=== PATIENT | male | born 1940 | race Asian ===

== ENCOUNTER → 2017-04-12 | Outpatient (CLI) | payer OTHER ==
[~2017-04-12] MED LIST: B&C/1TAB3 PO; BENZ-26 PO; FLUT100B IH; FLUT16H NASAL; INSLAN SQ; INSU100C14 INJ; MIDO5 PO; UMEC62.5 IH
== END | disposition home or self-care (01) ==
LOC: RADPV 14:21
PROVIDERS: ATTEND Internal Medicine Critical Care Medicine
DX: J98.11 Atelectasis (principal); R91.1 Solitary pulmonary nodule; J98.4 Other disorders of lung; I70.0 Atherosclerosis of aorta; M48.54XA Collapsed vertebra, not elsewhere classified, thoracic region, initial encounter for fracture
CPT/HCPCS: 71020

== ENCOUNTER → 2017-09-11 | Outpatient (CLI) | payer OTHER ==
[~2017-09-11] MED LIST changes: -BENZ-26 PO; +BENZ-51 PO; -MIDO5 PO; +MIDO5TAB23 PO
== END | disposition home or self-care (01) ==
LOC: RADMN 11:01
PROVIDERS: ATTEND Internal Medicine Critical Care Medicine
DX: J43.2 Centrilobular emphysema (principal); R91.8 Other nonspecific abnormal finding of lung field; I25.10 Atherosclerotic heart disease of native coronary artery without angina pectoris; I73.9 Peripheral vascular disease, unspecified; K80.20 Calculus of gallbladder without cholecystitis without obstruction; K44.9 Diaphragmatic hernia without obstruction or gangrene; N20.0 Calculus of kidney
CPT/HCPCS: 71250

== ENCOUNTER 2017-12-11 07:23 | Day surgery (SDC) | payer OTHER ==
[~2017-12-11] VITALS: Ht 157.5 cm; Wt 44.1 kg
[~2017-12-11 07:23] MED LIST changes: -BENZ-51 PO; -FLUT100B IH; -FLUT16H NASAL; -INSLAN SQ; -MIDO5TAB23 PO; +SEVEC800 PO; +SODIUM CHLORIDE 0.9% 1,000 ML IV ONE; +TRAM50TA4 PO; -UMEC62.5 IH; +VITAD1000 PO
[2017-12-11 08:24] LABS: BASOPHILS % (AUTO) 0.9 % (0.0-2.0); EOSINOPHILS % (AUTO) 7.4 % (1.0-6.0); HEMATOCRIT 36.1 % (41-53); HEMOGLOBIN 12.4 g/dL (13.5-17.5); LYMPHOCYTES # (AUTO) 1.4 K/uL (1.0-4.8); MEAN CORPUSCULAR HEMOGLOBIN 36.5 pg (26.0-34.0); MEAN CORPUSCULAR HGB CONC 34.5 G/dL (31.0-37.0); MEAN CORPUSCULAR VOLUME 106 fL (80-100); MONOCYTES # (AUTO) 0.4 K/uL (0.1-1.0); MONOCYTES % (AUTO) 7.1 % (2.0-9.0); NEUTROPHILS % (AUTO) 62.6 % (40.0-70.0); PLATELET COUNT (AUTO) 283 K/uL (150-450); RED BLOOD CELL COUNT(AUTO) 3.41 MIL/uL (4.50-5.90); RED CELL DISTRIBUTION WIDTH 14.2 % (11.5-14.5)
[2017-12-11 08:48] LABS: CALCIUM, TOTAL 9.5 mg/dL (8.8-10.5); CREATININE 6.68 mg/dL (0.60-1.30); POTASSIUM 5.3 mmol/L (3.5-5.1)
[2017-12-11 08:54] LABS: PROTHROMBIN TIME 10.3 SEC (9.4-11.6)
[2017-12-11] MEDS ORDERED: GELATIN SPONGE,ABSORBABLE 12-7 MM TP ONE (09:33)
[2017-12-11] MEDS ORDERED: FentaNYL CITRATE-PF 100 MCG/2 ML VIAL ONE (09:33)
[2017-12-11] MEDS ORDERED: MIDAZOLAM HCL 2 MG/2 ML VIAL ONE (09:33)
[2017-12-11] MEDS ORDERED: LIDOCAINE HCL/PF 1% 30 ML VIAL ONE (09:33)
[2017-12-11] MEDS ORDERED: FentaNYL CITRATE-PF 100 MCG/2 ML VIAL IVP ONE (09:50)
[2017-12-11] MEDS ORDERED: MIDAZOLAM HCL 2 MG/2 ML VIAL IVP ONE (09:50)
== END 2017-12-11 13:45 | disposition home or self-care (01) ==
LOC: SURGERY 07:23 → EDSTATUS 09:00 → SURGERY 13:45
PROVIDERS: ATTEND Internal Medicine Critical Care Medicine
DX: J98.4 Other disorders of lung (principal); E11.22 Type 2 diabetes mellitus with diabetic chronic kidney disease; I12.0 Hypertensive chronic kidney disease with stage 5 chronic kidney disease or end stage renal disease; N18.6 End stage renal disease; F10.21 Alcohol dependence, in remission; Z87.891 Personal history of nicotine dependence; Z98.890 Other specified postprocedural states; Z79.4 Long term (current) use of insulin; Z79.899 Other long term (current) drug therapy
CPT/HCPCS: 32405; 36415; 71045; 77012; 80048; 85025; 85610; 85730; 87015; 87070; 87205; 93005; J2250; J3010; J7030; J3490

== ENCOUNTER 2018-03-21 06:50 | Day surgery (SDC) | payer OTHER ==
[~2018-03-21] VITALS: Ht 160 cm; Wt 43.2 kg
[~2018-03-21 06:50] MED LIST changes: -SODIUM CHLORIDE 0.9% 1,000 ML IV ONE; -TRAM50TA4 PO
[2018-03-21] MEDS ORDERED: SODIUM CHLORIDE 0.9% 1,000 ML IV ONE (06:51)
[2018-03-21 07:34] LABS: BASOPHILS % (AUTO) 0.8 % (0.0-2.0); HEMATOCRIT 34.2 % (41-53); HEMOGLOBIN 12.1 g/dL (13.5-17.5); LYMPHOCYTES # (AUTO) 1.7 K/uL (1.0-4.8); LYMPHOCYTES % (AUTO) 23.5 % (22.0-44.0); MEAN CORPUSCULAR HEMOGLOBIN 37.6 pg (26.0-34.0); MEAN CORPUSCULAR HGB CONC 35.4 G/dL (31.0-37.0); MEAN CORPUSCULAR VOLUME 106 fL (80-100); MONOCYTES # (AUTO) 0.5 K/uL (0.1-1.0); MONOCYTES % (AUTO) 6.7 % (2.0-9.0); NEUTROPHILS # (AUTO) 4.5 K/uL (1.8-7.7); PLATELET COUNT (AUTO) 372 K/uL (150-450); RED BLOOD CELL COUNT(AUTO) 3.22 MIL/uL (4.50-5.90); RED CELL DISTRIBUTION WIDTH 14.7 % (11.5-14.5)
[2018-03-21] MEDS: SODIUM CHLORIDE 0.9% 1,000 ML IV ONE (07:34)
[2018-03-21 07:43] LABS: PROTHROMBIN TIME 10.2 SEC (9.4-11.6)
[2018-03-21] MEDS ORDERED: TAMS0.4C32 PO (07:59)
[2018-03-21] MEDS ORDERED: MIRALAX PO (07:59)
[2018-03-21] MEDS ORDERED: ACET-66 PO (07:59)
[2018-03-21] MEDS ORDERED: MIDO5TAB23 PO (07:59)
[2018-03-21 08:10] LABS: CALCIUM, TOTAL 9.4 mg/dL (8.8-10.5); CREATININE 6.08 mg/dL (0.60-1.30); POTASSIUM 5.2 mmol/L (3.5-5.1)
[2018-03-21] MEDS ORDERED: MIDAZOLAM HCL 2 MG/2 ML VIAL ONE (08:57)
[2018-03-21] MEDS ORDERED: NALOXONE HCL 0.4 MG/ML VIAL ONE (08:58)
[2018-03-21] MEDS ORDERED: FentaNYL CITRATE-PF 100 MCG/2 ML VIAL ONE (08:58)
[2018-03-21] MEDS ORDERED: FLUMAZENIL 0.1 MG/ML 5 ML VIAL IVP ONE (08:58)
[2018-03-21] MEDS ORDERED: LIDOCAINE HCL/PF 1% 30 ML VIAL ONE (08:59)
[2018-03-21] MEDS: FentaNYL CITRATE-PF 100 MCG/2 ML VIAL IVP ONE (10:57)
[2018-03-21] MEDS: MIDAZOLAM HCL 2 MG/2 ML VIAL IVP ONE (10:57)
== END 2018-03-21 13:40 | disposition home or self-care (01) ==
LOC: SURGERY 06:50 → EDSTATUS 09:00 → SURGERY 13:40
PROVIDERS: ATTEND Internal Medicine Critical Care Medicine
DX: C34.31 Malignant neoplasm of lower lobe, right bronchus or lung (principal); J43.9 Emphysema, unspecified; E11.22 Type 2 diabetes mellitus with diabetic chronic kidney disease; I12.0 Hypertensive chronic kidney disease with stage 5 chronic kidney disease or end stage renal disease; N18.6 End stage renal disease; Z99.2 Dependence on renal dialysis; Z79.891 Long term (current) use of opiate analgesic; Z79.4 Long term (current) use of insulin; Z87.891 Personal history of nicotine dependence; Z98.890 Other specified postprocedural states; Z79.899 Other long term (current) drug therapy
CPT/HCPCS: 32405; 36415; 77012; 80048; 85025; 85610; 85730; 87070; 87205; 88305; 88342; J2250; J3010; J3490; J7030; 88341; J2310

== ENCOUNTER 2018-10-25 08:52 | Inpatient (IN) | payer MEDICARE, OTHER ==
[~2018-10-25] VITALS: Ht 160 cm; Wt 41.5 kg
[~2018-10-25 08:52] MED LIST changes: +ACET-66 PO; -INSU100C14 INJ; +INSU100C14 SQ; +MIDO5TAB23 PO; +MIRALAX PO; +TAMS0.4C32 PO
[2018-10-25] MEDS ORDERED: 0.9% SODIUM CHLORIDE 10 ML SYRINGE IVP PRN (09:15)
[2018-10-25] MEDS ORDERED: FINA5TAB41 PO (09:29)
[2018-10-25] MEDS ORDERED: BENZ-51 PO (09:29)
[2018-10-25] MEDS ORDERED: INSLAN SQ (09:29)
[2018-10-25] MEDS ORDERED: TAMS0.4C32 PO (09:29)
[2018-10-25] MEDS ORDERED: SEVEC800 PO (09:29)
[2018-10-25] MEDS ORDERED: MIDO5TAB23 PO (09:29)
[2018-10-25 09:58] LABS: GLUCOSE,POINT OF CARE 81 MG/DL (70-110)
[2018-10-25] MEDS ORDERED: IPRATROPIUM BROMIDE 0.5 MG/2.5 ML NEB SOLUTION NEB ONE ×2 (10:14→10:30)
[2018-10-25 10:20] LABS: BASOPHILS % (AUTO) 0.4 % (0.0-2.0); EOSINOPHILS % (AUTO) 0.4 % (1.0-6.0); HEMATOCRIT 42.3 % (41-53); HEMOGLOBIN 14.3 g/dL (13.5-17.5); LYMPHOCYTES # (AUTO) 0.4 K/uL (1.0-4.8); LYMPHOCYTES % (AUTO) 5.2 % (22.0-44.0); MEAN CORPUSCULAR HEMOGLOBIN 37.3 pg (26.0-34.0); MEAN CORPUSCULAR HGB CONC 33.9 G/dL (31.0-37.0); MEAN CORPUSCULAR VOLUME 110 fL (80-100); MONOCYTES # (AUTO) 0.6 K/uL (0.1-1.0); MONOCYTES % (AUTO) 7.8 % (2.0-9.0); NEUTROPHILS # (AUTO) 6.7 K/uL (1.8-7.7); PLATELET COUNT (AUTO) 220 K/uL (150-450); RED BLOOD CELL COUNT(AUTO) 3.84 MIL/uL (4.50-5.90); RED CELL DISTRIBUTION WIDTH 17.3 % (11.5-14.5)
[2018-10-25 10:21] LABS: NEUTROPHILS % (AUTO) 86.2 % (40.0-70.0)
[2018-10-25 10:29] LABS: CREATININE 5.9 mg/dL (0.60-1.30); POTASSIUM 4.9 mmol/L (3.5-5.1)
[2018-10-25] MEDS ORDERED: ALBUTEROL SULFATE 5 MG/ML 20 ML NEB SOLN [BULK] NEB ONE (10:30)
[2018-10-25] MEDS ORDERED: SODIUM CHLORIDE 0.9% 1,250 ML IV ONE (10:33)
[2018-10-25 10:35] LABS: BILIRUBIN,TOTAL 1.7 mg/dL (0.1-1.0); TOTAL PROTEIN, SERUM 6.8 g/dL (6.4-8.2)
[2018-10-25 10:38] LABS: LACTIC ACID 1.8 mmol/L (0.4-2.0)
[2018-10-25] MEDS ORDERED: AZITHROMYCIN 500 MG/NS 250 ML IV ONE (10:45)
[2018-10-25] MEDS ORDERED: CefTRIAXone 1 GM/DEXTROSE 50 ML IV ONE (10:45)
[2018-10-25] MEDS ORDERED: BISACODYL 10 MG RECTAL RECTAL SUPPOSITORY PR PRN (11:00)
[2018-10-25] MEDS ORDERED: ACETAMINOPHEN 325 MG TABLET PO PRN (11:00)
[2018-10-25] MEDS ORDERED: DEXTROSE 50%-WATER 25 GM/50 ML SYRINGE IVP PRN (11:00)
[2018-10-25] MEDS ORDERED: ALBUTEROL SULFATE 2.5 MG/0.5 ML NEB SOLUTION NEB PRN (11:00)
[2018-10-25 11:25] LABS: INFLUENZA TYPE A NEGATIVE FOR TYPE A (NEGATIVE); INFLUENZA TYPE B POSITIVE FOR TYPE B (NEGATIVE)
[2018-10-25 11:57] LABS: PROTHROMBIN TIME 41.2 SEC (9.4-11.6)
[2018-10-25 12:03] LABS: INR 4.1 (0.9-1.1)
[2018-10-25] MEDS: ASPIRIN 81 MG CHEWABLE TABLET PO SCH (12:07)
[2018-10-25] MEDS ORDERED: BENZ150C3 PO (12:12)
[2018-10-25] MEDS ORDERED: OSELTAMIVIR PHOSPHATE 75 MG CAPSULE PO ONE (12:15)
[2018-10-25] MEDS: HEPARIN SODIUM,PORCINE 5,000 UNITS/ML VIAL SQ SCH (21:17)
[2018-10-25] MEDS: DOCUSATE SODIUM 100 MG CAPSULE PO SCH (21:17)
[2018-10-26 04:00] VITALS: BP 154/44
[2018-10-26 08:00] VITALS: BP 148/83
[2018-10-26] MEDS: HEPARIN SODIUM,PORCINE 5,000 UNITS/ML VIAL SQ SCH ×2 (08:22→20:30)
[2018-10-26] MEDS: ASPIRIN 81 MG CHEWABLE TABLET PO SCH (08:22)
[2018-10-26] MEDS: DOCUSATE SODIUM 100 MG CAPSULE PO SCH ×2 (08:22→20:30)
[2018-10-26] MEDS: FAMOTIDINE 20 MG TABLET PO SCH (08:22)
[2018-10-26 08:34] LABS: GLUCOSE,POINT OF CARE 108 MG/DL (70-110)
[2018-10-26] MEDS: OSELTAMIVIR PHOSPHATE 30 MG CAPSULE PO SCH (11:30)
[2018-10-26] MEDS: INSULIN LISPRO 100 UNITS/ML SQ PRN (11:53)
[2018-10-26 12:00] VITALS: BP 155/52
[2018-10-26] MEDS ORDERED: SODIUM CHLORIDE 0.9% 250 ML IV ONE (13:10)
[2018-10-26] MEDS: CefTRIAXone 1 GM/DEXTROSE 50 ML IV SCH (13:13)
[2018-10-26] MEDS: AZITHROMYCIN 500 MG/NS 250 ML IV SCH (13:46)
[2018-10-26 16:00] VITALS: BP 148/65
[2018-10-26 19:13] LABS: GLUCOSE,POINT OF CARE 116 MG/DL (70-110)
[2018-10-26 20:00] VITALS: BP 115/65
[2018-10-26] MEDS: GuaiFENesin/D-METHORPHAN/PHENYLEPH 5 ML LIQUID ORAL.SYG PO PRN (22:39)
[2018-10-26 22:53] LABS: GLUCOSE,POINT OF CARE 140 MG/DL (70-110)
[2018-10-27] VITALS: BP 115/53
[2018-10-27] MEDS: GuaiFENesin/D-METHORPHAN/PHENYLEPH 5 ML LIQUID ORAL.SYG PO PRN ×2 (03:52→11:54)
[2018-10-27 04:00] VITALS: BP 129/53
[2018-10-27 05:29] LABS: GLUCOSE,POINT OF CARE 146 MG/DL (70-110)
[2018-10-27 06:49] LABS: GLUCOSE,POINT OF CARE 112 MG/DL (70-110)
[2018-10-27 08:00] VITALS: BP 127/61
[2018-10-27] MEDS: DOCUSATE SODIUM 100 MG CAPSULE PO SCH ×2 (08:51→21:00)
[2018-10-27] MEDS: FAMOTIDINE 20 MG TABLET PO SCH (08:51)
[2018-10-27] MEDS: ASPIRIN 81 MG CHEWABLE TABLET PO SCH (08:51)
[2018-10-27] MEDS: HEPARIN SODIUM,PORCINE 5,000 UNITS/ML VIAL SQ SCH ×2 (08:51→21:22)
[2018-10-27] MEDS: OSELTAMIVIR PHOSPHATE 30 MG CAPSULE PO SCH (08:52)
[2018-10-27 09:07] LABS: BASOPHILS % (AUTO) 0.2 % (0.0-2.0); EOSINOPHILS % (AUTO) 0.5 % (1.0-6.0); HEMATOCRIT 43.1 % (41-53); HEMOGLOBIN 14.4 g/dL (13.5-17.5); LYMPHOCYTES # (AUTO) 0.3 K/uL (1.0-4.8); LYMPHOCYTES % (AUTO) 3.7 % (22.0-44.0); MEAN CORPUSCULAR HEMOGLOBIN 37.4 pg (26.0-34.0); MEAN CORPUSCULAR HGB CONC 33.5 G/dL (31.0-37.0); MEAN CORPUSCULAR VOLUME 112 fL (80-100); MONOCYTES # (AUTO) 0.8 K/uL (0.1-1.0); MONOCYTES % (AUTO) 9.2 % (2.0-9.0); NEUTROPHILS # (AUTO) 7.6 K/uL (1.8-7.7); PLATELET COUNT (AUTO) 261 K/uL (150-450); RED BLOOD CELL COUNT(AUTO) 3.86 MIL/uL (4.50-5.90); RED CELL DISTRIBUTION WIDTH 17.2 % (11.5-14.5)
[2018-10-27 09:11] LABS: NEUTROPHILS % (AUTO) 86.4 % (40.0-70.0)
[2018-10-27 09:17] LABS: CALCIUM, TOTAL 9.4 mg/dL (8.8-10.5); CREATININE 9.15 mg/dL (0.60-1.30); MAGNESIUM 2.4 mg/dL (1.80-2.40); PHOSPHORUS 6.5 mg/dL (2.5-4.9)
[2018-10-27 09:21] LABS: POTASSIUM 6.3 mmol/L (3.5-5.1)
[2018-10-27] MEDS ORDERED: SODIUM POLYSTYRENE SULFONATE 15 GM/60 ML SUSPENSION BOTTLE PO ONE ×2 (09:30→16:00)
[2018-10-27] MEDS: CefTRIAXone 1 GM/DEXTROSE 50 ML IV SCH (11:54)
[2018-10-27 12:00] VITALS: BP 148/77
[2018-10-27] MEDS: AZITHROMYCIN 500 MG/NS 250 ML IV SCH (12:30)
[2018-10-27] MEDS ORDERED: DEXTROSE 50%-WATER 25 GM/50 ML SYRINGE IVP ONE (14:45)
[2018-10-27] MEDS ORDERED: LACTULOSE 20 GM/30 ML SOLUTION UDCUP PO ONE (14:45)
[2018-10-27] MEDS ORDERED: INSULIN REGULAR, HUMAN 100 UNITS/ML IVP ONE (14:45)
[2018-10-27 16:00] VITALS: BP 118/94
[2018-10-27 18:47] LABS: CALCIUM, TOTAL 9.8 mg/dL (8.8-10.5); CREATININE 9.93 mg/dL (0.60-1.30); MAGNESIUM 2.5 mg/dL (1.80-2.40); POTASSIUM 5.4 mmol/L (3.5-5.1)
[2018-10-27 19:28] LABS: GLUCOSE,POINT OF CARE 74 MG/DL (70-110)
[2018-10-27 20:27] VITALS: BP 107/64
[2018-10-27 23:29] LABS: GLUCOMETER DEV NAME(LOC) 6N.2; GLUCOSE,POINT OF CARE 108 MG/DL (70-110)
[2018-10-28 00:21] VITALS: BP 111/66
[2018-10-28] MEDS: GuaiFENesin/D-METHORPHAN/PHENYLEPH 5 ML LIQUID ORAL.SYG PO PRN ×3 (02:02→14:23)
[2018-10-28 05:24] VITALS: BP 106/65
[2018-10-28 05:40] LABS: BASOPHILS % (AUTO) 0.4 % (0.0-2.0); EOSINOPHILS % (AUTO) 0.8 % (1.0-6.0); HEMATOCRIT 41.2 % (41-53); HEMOGLOBIN 14.2 g/dL (13.5-17.5); LYMPHOCYTES # (AUTO) 0.3 K/uL (1.0-4.8); LYMPHOCYTES % (AUTO) 3.9 % (22.0-44.0); MEAN CORPUSCULAR HEMOGLOBIN 37.6 pg (26.0-34.0); MEAN CORPUSCULAR HGB CONC 34.4 G/dL (31.0-37.0); MEAN CORPUSCULAR VOLUME 109 fL (80-100); MONOCYTES # (AUTO) 0.8 K/uL (0.1-1.0); MONOCYTES % (AUTO) 9.5 % (2.0-9.0); NEUTROPHILS # (AUTO) 6.8 K/uL (1.8-7.7); PLATELET COUNT (AUTO) 263 K/uL (150-450); RED BLOOD CELL COUNT(AUTO) 3.77 MIL/uL (4.50-5.90); RED CELL DISTRIBUTION WIDTH 16.9 % (11.5-14.5)
[2018-10-28 05:59] LABS: NEUTROPHILS % (AUTO) 85.4 % (40.0-70.0)
[2018-10-28 06:01] LABS: CREATININE 10.85 mg/dL (0.60-1.30); MAGNESIUM 2.7 mg/dL (1.80-2.40); PHOSPHORUS 6.9 mg/dL (2.5-4.9); POTASSIUM 5.4 mmol/L (3.5-5.1)
[2018-10-28 06:04] LABS: GLUCOMETER DEV NAME(LOC) 6N.1; GLUCOSE,POINT OF CARE 102 MG/DL (70-110)
[2018-10-28 06:49] LABS: GLUCOSE,POINT OF CARE 129 MG/DL (70-110)
[2018-10-28 08:26] VITALS: BP 124/66
[2018-10-28] MEDS: DOCUSATE SODIUM 100 MG CAPSULE PO SCH (09:00)
[2018-10-28] MEDS: HEPARIN SODIUM,PORCINE 5,000 UNITS/ML VIAL SQ SCH (09:07)
[2018-10-28] MEDS: ASPIRIN 81 MG CHEWABLE TABLET PO SCH (09:07)
[2018-10-28] MEDS: OSELTAMIVIR PHOSPHATE 30 MG CAPSULE PO SCH (09:07)
[2018-10-28] MEDS: FAMOTIDINE 20 MG TABLET PO SCH (09:07)
[2018-10-28] MEDS ORDERED: SODIUM CHLORIDE 0.9% 500 ML IV ONE (10:58)
[2018-10-28] MEDS: CefTRIAXone 1 GM/DEXTROSE 50 ML IV SCH (11:23)
[2018-10-28] MEDS: INSULIN LISPRO 100 UNITS/ML SQ PRN (11:40)
[2018-10-28 11:43] VITALS: BP 115/56
[2018-10-28] MEDS ORDERED: LEVO500 PO (12:12)
[2018-10-28] MEDS: AZITHROMYCIN 500 MG/NS 250 ML IV SCH (13:14)
[2018-10-28 17:35] LABS: GLUCOMETER DEV NAME(LOC) 6N.2; GLUCOSE,POINT OF CARE 226 MG/DL (70-110)
== END 2018-10-28 16:20 | disposition home or self-care (01) | DRG 193 ==
LOC: EMS 08:53 → ICU 10-26 01:30 → 6N 10-27 20:05
PROVIDERS: ADMIT Internal Medicine; ATTEND Internal Medicine
DX: J18.9 Pneumonia, unspecified organism (principal); N18.6 End stage renal disease; E43 Unspecified severe protein-calorie malnutrition; R64 Cachexia; Z68.1 Body mass index [BMI] 19.9 or less, adult; C34.90 Malignant neoplasm of unspecified part of unspecified bronchus or lung; I25.10 Atherosclerotic heart disease of native coronary artery without angina pectoris; J10.00 Influenza due to other identified influenza virus with unspecified type of pneumonia; E78.00 Pure hypercholesterolemia, unspecified; E11.22 Type 2 diabetes mellitus with diabetic chronic kidney disease; F17.210 Nicotine dependence, cigarettes, uncomplicated; D63.1 Anemia in chronic kidney disease; N40.0 Benign prostatic hyperplasia without lower urinary tract symptoms; Z66 Do not resuscitate; E87.5 Hyperkalemia; Z79.4 Long term (current) use of insulin; Z83.3 Family history of diabetes mellitus; Z82.49 Family history of ischemic heart disease and other diseases of the circulatory system; Z99.2 Dependence on renal dialysis; Z85.118 Personal history of other malignant neoplasm of bronchus and lung
CPT/HCPCS: 70450; 83605; 83735; 84100; 84145; 87040; 87081; 87804; 93005; 93306; 94644; 96365; 96368; 99291; G0378; J0456; J0696; J1644; J1815; J7030; J7040; J7050